=== PATIENT | female | born 1950 | race Hispanic/Latino ===

== ENCOUNTER → 2021-12-31 | Outpatient (CLI) | payer OTHER | LOC: RAH 07:34 | PROVIDERS: ATTEND Internal Medicine | DX: Z12.31 Encounter for screening mammogram for malignant neoplasm of breast (principal) | CPT/HCPCS: 77067 ==

== ENCOUNTER → 2022-10-20 | Outpatient (CLI) | payer OTHER | END | disposition home or self-care (01) | LOC: RAH 12:44 | PROVIDERS: ATTEND Internal Medicine | DX: I51.7 Cardiomegaly (principal); I20.9 Angina pectoris, unspecified | CPT/HCPCS: 93306 ==

== ENCOUNTER → 2023-12-25 | Outpatient (CLI) | payer OTHER | LOC: RAH 13:03 | PROVIDERS: ATTEND Internal Medicine | DX: R55 Syncope and collapse (principal); R51.9 Headache, unspecified | CPT/HCPCS: 70450; 93880 ==

== ENCOUNTER 2024-07-30 10:50 | Emergency (ER) | payer OTHER, MEDICARE ==
[~2024-07-30] VITALS: Ht 149.9 cm; Wt 90.7 kg
[2024-07-30 11:40] LABS: BASOPHILS # (AUTO) 0.03 K/uL (0.00-0.20); BASOPHILS % (AUTO) 0.4 % (0.0-5.0); EOSINOPHILS # (AUTO) 0.09 K/uL (0.00-0.70); EOSINOPHILS % (AUTO) 1.1 % (0.0-8.0); HEMATOCRIT 34.9 % (36-48); IMMATURE GRANULOCYTE ABSOLUTE 0.03 K/uL (0-1); LYMPHOCYTES # (AUTO) 1.8 K/uL (1.0-4.8); LYMPHOCYTES % (AUTO) 20.9 % (21.0-51.0); MEAN CORPUSCULAR HEMOGLOBIN 31.6 pg (27.0-33.0); MEAN CORPUSCULAR HGB CONC 33.5 g/dL (32.0-36.0); MEAN CORPUSCULAR VOLUME 94.3 fL (79-99); MONOCYTES # (AUTO) 0.8 K/uL (0.1-1.0); MONOCYTES % (AUTO) 9.6 % (3.0-13.0); NEUTROPHILS # (AUTO) 5.7 K/uL (1.8-7.7); NEUTROPHILS % (AUTO) 67.6 % (40.0-77.0); PLATELET COUNT (AUTO) 310 K/uL (130-400); RED CELL DISTRIBUTION WIDTH 12.7 % (11.0-15.5); WHITE BLOOD COUNT (AUTO) 8.4 K/uL (4.8-10.8)
--- NOTE | 2024-07-30 11:51 | HMCIMG ---
Exam: NONCONTRAST CT BRAIN REASON: fall/headinjury +loc. COMPARISON: None. TECHNIQUE: Images are obtained from vertex to the skull base. The exam was performed without IV contrast. FINDINGS: There is normal appearing brain parenchyma. There are no focal mass lesions. There is is no evidence of intracranial hemorrhage or acute stroke. Ventricles and sulci appear normal. Posterior fossa and brainstem structures are unremarkable. Paranasal sinuses and remaining extracranial soft tissues appear normal as well. IMPRESSION: 1. Normal noncontrast CT brain. CT was performed with one or more following dose reduction techniques: automated exposure control, adjustment of the mA and kv according to patient's size, or use of a iterative reconstruction technique.
[2024-07-30 12:15] LABS: CREATININE 1.2 mg/dL (0.5-1.0); MAGNESIUM 1.8 mg/dL (1.80-2.40); POTASSIUM 3.7 mmol/L (3.5-5.1)
[2024-07-30 12:50] LABS: B-TYPE NATRIURETIC PEPTIDE 87 pg/mL (0-100)
--- NOTE | 2024-07-30 13:11 | HMCIMG ---
CHEST 1VW REASON: fall COMPARISON: None FINDINGS: Single view of the chest was obtained. Lungs are clear. Heart size is normal. There is no pulmonary vascular congestion. Mediastinum and bony thorax appear unremarkable. IMPRESSION: 1. Normal single view chest x-ray.
--- NOTE | 2024-07-30 13:12 | HMCIMG ---
HIP BILAT 2VW REASON: fall COMPARISON: None TECHNIQUE: 5 views are obtained of the pelvis and of both hips. FINDINGS: Bones of the pelvis appear intact. SI joints are unremarkable. Hip joint spaces are preserved. Proximal femurs appear normal as well. There are no fractures. Soft tissues appear unremarkable. IMPRESSION: 1. Normal views of the pelvis and both hips.
--- NOTE | 2024-07-30 13:32 | HMCIMG ---
KNEE 3 VW BILATERAL REASON: fall COMPARISON: None TECHNIQUE: 3 views were obtained of each knee , 6 views total. FINDINGS: Right knee shows moderate medial joint space osteoarthritis. Lateral and patellofemoral joint spaces are preserved. There are no fractures. There is no joint effusion. Left knee shows a total joint prosthesis in place. There is normal appearance of the remaining bone. There is no evidence of soft tissue swelling or effusion. IMPRESSION: 1. Moderate medial joint space osteoarthritis, right knee is otherwise unremarkable. 2. Total joint prosthesis in place on the right without evidence of complication.
[2024-07-30 13:49] LABS: APPEARANCE,URINE CLEAR (CLEAR); BILIRUBIN,URINE NEGATIVE (NEGATIVE); COLOR,URINE LIGHT-YELLOW (YELLOW); GLUCOSE, URINE (UA) NEGATIVE (NEGATIVE); KETONES,URINE NEGATIVE (NEGATIVE); LEUKOCYTE ESTERASE ,URINE NEGATIVE Leu/uL (NEGATIVE); NITRATE,URINE NEGATIVE (NEGATIVE); OCCULT BLOOD,URINE NEGATIVE (NEGATIVE); PROTEIN,URINE NEGATIVE (NEGATIVE); UROBILINOGEN,URINE 0.2 mg/dL (0.2-1.0)
[2024-07-30 13:54] LABS: ADD UA MICROSCOPIC NO
--- NOTE | 2024-07-30 13:56 | EKG ---
[facility] Test Date: 2024-07-30 Test Time: 11:21:16 Pat Name: GIANCARLO CERVANTES Department: [facility] Room: Gender: F [employer]: [id number] : 1950 Requested By: KARINA LUTZ Order Number: [id number] Reading MD: Abhishek Umaña Measurements Intervals [place] Rate: 82 P: 0 MN: 0 QRS: 12 QRSD: 82 T: 25 QT: 371 QTc: 435 Interpretive Statements Normal Sinus Rhythm No previous ECG available for comparison Electronically Signed On 07-30-2024 14:45:56 [employer] by Abhishek Umaña Please click the below link to view image of tracing.
[2024-07-30 14:14] VITALS: BP 121/76; PULSE 88; RESP 16; TEMP 98.2; O2SAT 97
--- NOTE | 2024-07-30 14:28 | ERN ---
General Chief Complaint: Mechanical Fall Stated Complaint: FALL Time Seen by MD: 10:52 Time Seen by Midlevel: 10:52 Source: patient History of Present Illness Initial Comments Patient is a 73-year-old female presenting to the emergency department following a mechanical ground level fall that occurred earlier today. According to provider who is at bedside patient accidentally stepped over a concrete step and fell down. It is unclear if she hit her head or lost consciousness. Patient states the entire event was a blurred. She states she had a similar episode several weeks ago but did not get evaluated. On arrival she was reporting pain to her knees. She was also reporting a headache. Denies any other symptoms. Denies being on blood thinners. Allergies: Coded Allergies: Penicillins (Unverified Allergy, Unknown, 07/30/24) Past Medical History Past Medical History: Arthritis, High Cholesterol, Hypertension Past Surgical History: Cholecystectomy ROS Dictation CONSTITUTIONAL: Negative except for HPI HEAD/FACE: Negative except for HPI EENT: Negative except for HPI RESPIRATORY: Negative except for HPI GASTROINTESTINAL/ABDOMINAL: Negative except for HPI GENITOURINARY: Negative except for HPI MUSCULOSKELETAL: Negative except for HPI INTEGUMENTARY: Negative except for HPI NEUROLOGICAL/PSYCH: Negative except for HPI HEMATOLOGIC/LYMPHATIC: Negative except for HPI All Systems Negative, Except as noted above. 13 point review of systems assessed and all negative except for above. Physical Exam Physical Exam Dictation Vital Signs reviewed General Appearance: Alert, oriented x 3, no acute distress, well developed, nourished. Head and Face: non-traumatic. Eyes: PERRL, pink conjunctivas, eyelid no trauma, anterior chamber with arcus senilis. Ears: Pinnas intact and no signs of trauma or erythema ear canals clear and no discharge TM no erythema Nose: No discharge, no bleeding. Oropharynx: Mouth normal, tongue pink, pharynx clear,no erythema, tonsils no exudates, no abscesses noted, mucous membrane moist Neck: Supple, non-tender, no thyromegaly, no masses, no JVD, no bruits Breast:Deferred Chest:No tenderness, no crepitus, no paradoxical movement, no retractions Lungs:Clear, well-ventilated, symmetric, no rales, no wheezing, no rhonchi, no stridor, good breath sounds bilaterally Heart: Regular rate, regular rhythm, no murmur, no gallops Vascular: no peripheral edema, Abdomen: Soft, positive bowel sounds, nondistended, no guarding, nontender, no rebound, no masses no hepatomegaly, no splenomegaly, no Zuluaga's sign, no hernias. Rectal: Deferred Genital: Deferred Neurological: Normal speech, motor function intact, sensory function intact Musculoskeletal: Neck nontender, full range of motion, back nontender, full range of motion, Extremities: nontender, full range of motion Skin: Color pink, dry, no turgor, no rash, no lacerations, no abrasions, no contusions. Lymphatic: Deferred Results Laboratory and Microbiology Lab and Micro Result Laboratory Tests Test 07/30/24 11:30 07/30/24 13:39 White Blood Count 8.4 K/uL (4.8-10.8) Red Blood Count 3.70 MIL/uL (4.00-5.50) L Hemoglobin 11.7 g/dL (12.0-16.0) L Hematocrit 34.9 % (36-48) L Mean Corpuscular Volume 94.3 fL (79-99) Mean Corpuscular Hemoglobin 31.6 pg (27.0-33.0) Mean Corpuscular Hemoglobin Concent 33.5 g/dL (32.0-36.0) Red Cell Distribution Width 12.7 % (11.0-15.5) Platelet Count 310 K/uL (130-400) Mean Platelet Volume 9.0 fL (7.5-10.5) Immature Granulocyte % (Auto) 0.4 % (0-1) Neutrophils (%) (Auto) 67.6 % (40.0-77.0) Lymphocytes (%) (Auto) 20.9 % (21.0-51.0) L Monocytes (%) (Auto) 9.6 % (3.0-13.0) Eosinophils (%) (Auto) 1.1 % (0.0-8.0) Basophils (%) (Auto) 0.4 % (0.0-5.0) Neutrophils # (Auto) 5.7 K/uL (1.8-7.7) Lymphocytes # (Auto) 1.8 K/uL (1.0-4.8) Monocytes # (Auto) 0.8 K/uL (0.1-1.0) Eosinophils # (Auto) 0.09 K/uL (0.00-0.70) Basophils # (Auto) 0.03 K/uL (0.00-0.20) Absolute Immature Granulocyte (auto 0.03 K/uL (0-1) Nucleated Red Blood Cells 0.0 % (0.0-0.19) Sodium Level 138 mmol/L (136-145) Potassium Level 3.7 mmol/L (3.5-5.1) Chloride Level 102 mmol/L (101-111) Carbon Dioxide Level 30 mmol/L (21-32) Blood Urea Nitrogen 26 mg/dL (7-18) H Creatinine 1.2 mg/dL (0.5-1.0) H Glomerular Filtration Rate Calc 48 mL/min (>90) Random Glucose 100 mg/dL (70-105) Total Calcium 9.5 mg/dL (8.5-10.1) Magnesium Level 1.80 mg/dL (1.80-2.40) Total Creatine Kinase 66 U/L (21-232) Troponin I High Sensitivity 7 ng/L (4-50) B-Type Natriuretic Peptide 87 pg/mL (0-100) Urine Color LIGHT-YELLOW (YELLOW) Urine Appearance CLEAR (CLEAR) Urine pH 5.0 (5.0-8.0) Urine Specific Elsie 1.011 (1.001-1.031) Urine Protein NEGATIVE mg/dL (NEGATIVE) Urine Glucose (UA) NEGATIVE mg/dL (NEGATIVE) Urine Ketones NEGATIVE mg/dL (NEGATIVE) Urine Occult Blood NEGATIVE (NEGATIVE) Urine Nitrate NEGATIVE (NEGATIVE) Urine Bilirubin NEGATIVE mg/dL (NEGATIVE) Urine Urobilinogen 0.2 mg/dL (0.2-1.0) Urine Leukocyte Esterase NEGATIVE Nickie/uL Labs Reviewed?: Yes MDM MDM: Patient is a 73-year-old female presenting to the emergency department following a mechanical ground level fall that occurred earlier today. According to provider who is at bedside patient accidentally stepped over a concrete step and fell down. It is unclear if she hit her head or lost consciousness. Patient states the entire event was a blurred. She states she had a similar episode several weeks ago but did not get evaluated. On arrival she was reporting pain to her knees. She was also reporting a headache. Denies any oth er symptoms. Denies being on blood thinners. On physical examination patient has restricted range motion to bilateral knee secondary to pain. The remainder of her physical examination is reassuring. She has a GCS of 15 in his neurologically intact. However given unknown mechanism of injury and unknown if she hit her head or lost consciousness CT scan of the head was ordered which does not reveal any acute abnormality. Hip and knee x-rays do not show any acute fracture. Chest x-ray is negative for any acute injury. Her labs are stable. Patient will be discharged home with supportive management. Differential diagnosis: Fall, closed head injury, skull fracture, intracranial bleed, knee fracture, contusion There are no social concerns with this patient. Prescription drug management Prescriptions will include: None Medical management and examination interpretation discussions were had by me with other qualified healthcare professionals as indicated for the patient's care. ED Course Orders Procedure Category Date Status Time 12 Lead Ekg Tracing- EKG 07/30/24 Resulted Technical 11:15 Cbc With Differential LAB 07/30/24 Complete 11:15 Basic Metabolic Panel LAB 07/30/24 Complete 11:15 B-Type Natriuretic LAB 07/30/24 Complete Peptide 11:15 Creatine Kinase, Total LAB 07/30/24 Complete 11:15 Magnesium LAB 07/30/24 Complete 11:15 Urinalysis Profile LAB 07/30/24 Complete 11:15 Troponin I High LAB 07/30/24 Complete Sensitivity 11:15 Chest 1vw RAD 07/30/24 Resulted 11:15 Hip Bilat 2vw RAD 07/30/24 Resulted 11:15 Knee 3 Vw Bilateral RAD 07/30/24 Resulted 11:15 Ct Head/Brain W/O CT 07/30/24 Resulted Contrast 11:15 Vital Signs Date Time Temp Pulse Resp B/P (MAP) Pulse Ox O2 Delivery O2 Flow Rate FiO2 07/30/24 14:14 98.2 88 16 121/76 97 Room Air* 0 21 07/30/24 10:52 98.2 90 16 128/73 97 Room Air 0 [facility] [address] [address] IMAGING REPORT Signed PATIENT: GIANCARLO CERVANTES MR#: [id number] : 1950 SEX: F AGE: 73 LOCATION: [facility] ORDER 1116 STATUS: REG [facility] REPORT#: [id number] SERVICE 111 REASON: fall ORDERING PHYSICIAN: KARINA LUTZ PROCEDURE: KNEE 3VBIL - KNEE 3 VW BILATERAL KNEE 3 VW BILATERAL REASON: fall COMPARISON: None TECHNIQUE: 3 views were obtained of each knee , 6 views total. FINDINGS: Right knee shows moderate medial joint space osteoarthritis. Lateral and patellofemoral joint spaces are preserved. There are no fractures. There is no joint effusion. Left knee shows a total joint prosthesis in place. There is normal appearance of the remaining bone. There is no evidence of soft tissue swelling or effusion. IMPRESSION: 1. Moderate medial joint space osteoarthritis, right knee is otherwise unremarkable. 2. Total joint prosthesis in place on the right without evidence of complication. DICTATED BY: PARDEEP CARDONA MD DATE: 07/30/24 1328 ELECTRONICALLY SIGNED BY: PARDEEP CARDONA MD DATE: 07/30/24 [address] [place] [address] [address] [id number] IMAGING REPORT Signed PATIENT: GIANCARLO CERVANTES MR#: [id number] : 1950 SEX: F AGE: 73 LOCATION: [facility] ORDER 15 STATUS: REG [facility] REPORT#: [id number] SERVICE 111 REASON: fall ORDERING PHYSICIAN: KARINA LUTZ PROCEDURE: HIPS B 2V - HIP BILAT 2VW HIP BILAT 2VW REASON: fall COMPARISON: None TECHNIQUE: 5 views are obtained of the pelvis and of both hips. FINDINGS: Bones of the pelvis appear intact. SI joints are unremarkable. Hip joint spaces are preserved. Proximal femurs appear normal as well. There are no fractures. Soft tissues appear unremarkable. IMPRESSION: 1. Normal views of the pelvis and both hips. DICTATED BY: PARDEEP CARDONA MD DATE: 07/30/24 1309 ELECTRONICALLY SIGNED BY: PARDEEP CARDONA MD DATE: 07/30/24 [address] [place] [address] [address] [id number] IMAGING REPORT Signed PATIENT: GIANCARLO CERVANTES MR#: [id number] : 1950 SEX: F AGE: 73 LOCATION: [facility] ORDER 15 STATUS: REG ER REPORT#: [id number] SERVICE 14 REASON: fall/headinjury +loc ORDERING PHYSICIAN: KARINA LUTZ PROCEDURE: HEAD WO - CT HEAD/BRAIN W/O CONTRAST Exam: NONCONTRAST CT BRAIN REASON: fall/headinjury +loc. COMPARISON: None. TECHNIQUE: Images are obtained from vertex to the skull base. The exam was performed without IV contrast. FINDINGS: There is normal appearing brain parenchyma. There are no focal mass lesions. There is is no evidence of intracranial hemorrhage or acute stroke. Ventricles and sulci appear normal. Posterior fossa and brainstem structures are unremarkable. Paranasal sinuses and remaining extracranial soft tissues appear normal as well. IMPRESSION: 1. Normal noncontrast CT brain. CT was performed with one or more following dose reduction techniques: automated exposure control, adjustment of the mA and kv according to patient's size, or use of a iterative reconstruction technique. DICTATED BY: PARDEEP CARDONA MD DATE: 07/30/24 1148 ELECTRONICALLY SIGNED BY: PARDEEP CARDONA MD DATE: 07/30/24 [address] [place] [address] IMAGING REPORT Signed PATIENT: GIANCARLO CERVANTES MR#: [id number] : 1950 SEX: F AGE: 73 LOCATION: ED ORDER 15 STATUS: REG [facility] REPORT#: [id number] SERVICE 111 REASON: fall ORDERING PHYSICIAN: KARINA LUTZ PROCEDURE: CXR1VW - CHEST 1VW CHEST 1VW REASON: fall COMPARISON: None FINDINGS: Single view of the chest was obtained. Lungs are clear. Heart size is normal. There is no pulmonary vascular congestion. Mediastinum and bony thorax appear unremarkable. IMPRESSION: 1. Normal single view chest x-ray. DICTATED BY: PARDEEP CARDONA MD DATE: 07/30/24 1308 ELECTRONICALLY SIGNED BY: PARDEEP CARDONA MD DATE: 07/30/24 1311 DX & DISP Disposition: Discharge Departure Impression: Primary Impression: Fall Additional Impression: Osteoarthritis of left knee Condition: Stable Additional Instructions: Your blood work today is unremarkable. Your cardiac enzymes are negative. Your EKG does not show any evidence of a heart attack. Your CT scan of the head is negative for any acute injury. Your bilateral knee x-ray show osteoarthritis but no acute fracture. Follow up with the primary care doctor in 2-3 days for repeat evaluation. Return to the ER for any new or worsening symptoms Referrals: ELIJAH GUILLEN MD (PCP) I have reviewed the case, and I agree with, Diagnosis and Plan I performed the substantive portion of the visit. I have reviewed and personally made and approve the management plan that is documented in the note by myself or the RUTH. I acknowledge for responsibility for the patient's management plan. KARINA LUTZ Jul 30, 2024 14:28 TRAVIS MADDOX DO Aug 01, 2024 11:35
== END 2024-07-30 14:35 | disposition home or self-care (01) ==
LOC: EDH 10:50
DX: M17.0 Bilateral primary osteoarthritis of knee (principal); E78.00 Pure hypercholesterolemia, unspecified; I10 Essential (primary) hypertension; Z88.0 Allergy status to penicillin; Z90.49 Acquired absence of other specified parts of digestive tract; W18.39XA Other fall on same level, initial encounter; Y93.89 Activity, other specified; Y92.89 Other specified places as the place of occurrence of the external cause; Y99.8 Other external cause status
CPT/HCPCS: 36415; 70450; 71045; 73521; 80048; 81003; 82550; 83735; 83880; 84484; 85025; 93005; 99285